=== PATIENT | male | born 1975 | race Caucasian/White ===

== ENCOUNTER 2023-08-04 13:26 | Outpatient (CLI) | payer MEDICAID, SELFPAY ==
[2023-08-04 16:34] LABS: Basophils # 0.1 K/mm3 (0-0.2); Eosinophils # 0.1 K/mm3 (0.0-0.4); Eosinophils % 1.5 % (0.1-12.0); Hematocrit 48.6 % (42.0-52.0); Hemoglobin 16.2 g/dL (14.1-18.0); Lymphocytes # 1.2 K/mm3 (0.7-4.5); Lymphocytes % 18.6 % (10-50); Mean Corpuscular HGB Conc 33.3 g/dL (31.8-35.4); Mean Corpuscular Volume 99.1 fl (80-94); Mean Platelet Volume 10.9 fl (7.4-10.4); Monocytes # 0.6 K/mm3 (0.1-1.0); Monocytes % 9.1 % (1.7-9.3); Neutrophils # 4.6 K/mm3 (1.8-7.8); Neutrophils % 69.8 % (37.0-80.0); Platelet Count 291 K/mm3 (142-424); Red Cell Distribution Width 13.9 % (11.5-17.5); White Blood Count 6.6 K/mm3 (4.8-10.8)
[2023-08-04 16:55] LABS: Alanine Aminotransferase 69 U/L (12-78); Albumin Level 4.4 g/dl (3.5-5.0); Albumin/Globulin Ratio 1.2 (1.1-1.8); Alkaline Phosphatase 359 U/L (38-126); Anion Gap 16.3 mEq/L (5-15); Aspartate Amino Transferase 69 U/L (17-59); Bilirubin, Conjugated 3.2 mg/dL (0.0-0.3); Bilirubin,Direct 5.4 mg/dl (0.0-0.4); Bilirubin,Indirect 3.6 mg/dL (0.0-0.9); Bilirubin,Unconjugated 3.6 mg/dL (0.0-1.1); Blood Urea Nitrogen 12 mg/dl (9-20); Calcium 10.3 mg/dl (8.4-10.2); Carbon Dioxide 27 mmol/L (22.0-30.0); Chloride 100 mmol/L (98-107); Chol/HDL Ratio 10.9 (1-3.5); Cholesterol 185 mg/dl (140-200); Estimated Glomerular Filt Rate 80 ml/min (>60); GFR (African American) 97 ML/MIN (>60); Globulin 3.6 g/dL (1.3-3.2); Glucose 115 mg/dl (74-100); HDL Cholesterol 17 mg/dl (40-60); Potassium 4.3 mmoL/L (3.5-5.1); Sodium 139 mmol/L (136-145); Triglycerides 317 mg/dl (30-150); VLDL Cholesterol 63 mg/dL (0-40)
[2023-08-04 17:06] LABS: Direct LDL Cholesterol 109.18 mg/dL (100-129)
[2023-08-04 17:12] LABS: Free Thyroxine Index 3.1 ug/dL (5.93-13.13); Triiodothryronine (T3) Uptake 26 % (23.5-40.5)
[2023-08-05 10:10] LABS: Hemoglobin A1C 5.1 % (4.0-6.0)
[2023-08-06 14:28] LABS: Amylase 72 U/L (30-110); Lipase 87 U/L (23-300)
== END 2023-08-04 23:59 | disposition home or self-care (01) ==
LOC: LAB.DROPOF 08-05 13:27
PROVIDERS: PCP Nurse Practitioner Family; Visit Provider Nurse Practitioner Family
DX: R11.0 Nausea (principal); R17 Unspecified jaundice; R73.09 Other abnormal glucose
CPT/HCPCS: 80050; 80053; 80061; 82150; 82247; 82248; 83036; 83690; 84436; 84443; 84479; 85025

== ENCOUNTER 2023-08-07 07:48 | Outpatient (CLI) | payer MEDICAID, SELFPAY ==
--- NOTE | 2023-08-07 07:48 | CT_ITS ---
FINAL REPORT TECHNIQUE: Axial CT images of the abdomen and pelvis were obtained before and after the administration of IV contrast. Oral contrast was administered.This study was performed with techniques to keep radiation doses as low as reasonably achievable (ALARA). Individualized dose reduction techniques using automated exposure control or adjustment of mA and/or kV according to the patient's size were employed. CLINICAL HISTORY: Jaundice, nausea x 3 months COMPARISON: None FINDINGS: Abdomen: The lung bases are clear. The heart is normal in size. The gallbladder has been surgically resected. There is moderate biliary ductal dilatation, with the common bile duct measuring up to 17 mm in diameter. A common bile duct stent is present. . The spleen is unremarkable. No adrenal masses present. No well-defined pancreatic mass is identified. There is moderate left renal atrophy. There is a 15 mm mass in the anterior aspect of the left kidney, consistent with a simple cyst, which does not require follow-up. The aorta is normal in caliber. There are several mildly enlarged peripancreatic nodes, of uncertain significance, likely reactive or neoplastic. There is a node superior to the pancreatic head that measures 16 mm in size, as well as a portacaval node which measures 24 mm in size. No mass or abnormal fluid collection is seen. Precontrast images demonstrate no evidence of nephrolithiasis. Pelvis: The appendix is normal in appearance. The urinary bladder is unremarkable. No inflammatory process is seen. There is no evidence of mass or adenopathy. There is no evidence of bowel obstruction. IMPRESSION: Postcholecystectomy, with moderate biliary ductal dilatation, the common bile duct measuring up to 17 mm in size. The common bile duct stent is present. The ductal dilatation is of uncertain etiology, and may represent a stricture or possibly a nonvisualized mass. There are several mildly enlarged peripancreatic lymph nodes, of uncertain significance. These may represent reactive or neoplastic nodes. 15 mm left renal cyst, does not require follow-up. Reviewed, Interpreted and Dictated by Dwayne Dodge III, MD Transcribed by Rose Muro Authenticated and [facility]
[2023-08-07 08:34] LABS: INR 0.98 (0.9-1.1); Prothrombin Time 10.6 seconds (10.1-12.5)
[2023-08-07] MEDS: SODIUM CHLORIDE 0.9% 10ML SYR (RAD ONLY) 10 ML IV (08:39)
[2023-08-07] MEDS: BARIUM SULFATE(READI-CAT2);450ML BOTTLE 450 ML PO (08:39)
[2023-08-07] MEDS: IOPAMIDOL-370 (76%);100ML BOTTLE 75 ML IV (08:40)
[2023-08-08 11:59] LABS: HBsAg Screen Negative (Negative); HCV Ab Non Reactive (Non Reactive); HIV Screen 4th Generation wRfx Non Reactive (Non Reactive); Hep A Ab, IGM Negative (Negative); Hep B Core Ab, IgM Negative (Negative)
== END 2023-08-07 23:59 | disposition home or self-care (01) ==
LOC: RAD 07:48
PROVIDERS: PCP Nurse Practitioner Family; Visit Provider Nurse Practitioner Family
DX: R11.0 Nausea (principal); R17 Unspecified jaundice
CPT/HCPCS: 36415; 74178; 80074; 85610; 86703; G0432; Q9967

== ENCOUNTER 2024-04-28 11:42 | Outpatient (CLI) | payer MEDICAID, SELFPAY ==
[2024-04-28 16:53] LABS: Coronavirus 19, PCR Not Detected (NotDetected); Human Rhinovirus Not Detected (NotDetected); Influenza A, PCR Not Detected (NotDetected); Influenza B, PCR Not Detected (NotDetected); Respiratory Syncytial Virus Not Detected (NotDetected)
== END 2024-04-28 23:59 | disposition home or self-care (01) ==
LOC: LAB.DROPOF 04-29 13:34
PROVIDERS: PCP Nurse Practitioner Family; Visit Provider Nurse Practitioner Family
DX: J32.9 Chronic sinusitis, unspecified (principal); Z87.891 Personal history of nicotine dependence
CPT/HCPCS: 87631